=== PATIENT | female | born 1990 | race Caucasian/White ===

== ENCOUNTER 2022-03-12 17:09 | Emergency (ER) | payer OTHER, SELFPAY ==
[2022-03-12 17:20] VITALS: BP 137/95; PULSE 70; RESP 18; TEMP 36.9; O2SAT 97
--- NOTE | 2022-03-12 17:33 | ED.DENTAL ---
HPI - Dental/Oral General Chief complaint: Dental/Oral Stated complaint: Lt Mouth Pain Time Seen by Provider: 03/12/22 17:34 History of Present Illness HPI Narrative: Yajaira Sosa is a 31 yo female with no PMH who comes to [facility] with worsened some dental pain on left lower for the past couple weeks, DM and taking ibuprofen ibuprofen but is no longer working and she states her jaw hurts and she thinks her tooth is infected. She has no oral surgeon Related Data Home Medications Medication Instructions Recorded Confirmed melatonin 5 mg tablet 5 mg PO HS PRN Insomnia 03/12/22 03/12/22 Allergies Allergy/AdvReac Type Severity Reaction Status Date / Time Sulfa (Sulfonamide AdvReac Mild Hives Verified 03/12/22 17:24 Antibiotics) Review of Systems Review of Systems: CONSTITUTIONAL: Denies fever, chills, sweats. EYES: Denies visual changes, redness, discharge. ENT: Denies rhinorrhea, congestion, sore throat, otalgia. Left rear lower dental pain CARDIOVASCULAR: Denies chest pain, palpitations, edema. RESPIRATORY: Denies dyspnea, wheezing, cough GASTROINTESTINAL: Denies abdominal pain, nausea, vomiting, diarrhea. GENITOURINARY: Denies dysuria, hematuria, abnormal discharge SKIN: Denies rash or itching. NEUROLOGIC: Denies numbness, or focal weakness. PSYCHIATRIC: Denies anxiety or depression. [facility] Social History Social History (Updated 03/12/22 @ 17:40 by Bernarda Cardenas CNP) Smoking packs per day: 0.5 Smoking cigarettes per day: 10.0 Smoking status: Current every day smoker Tobacco type: cigarettes Alcohol intake: current Comments At time of signature, I agree with nursing past medical, surgical, social and family history. There is no relevant family history pertinent to the presenting complaint. Exam Narrative: GENERAL: This is a well-nourished, well-developed patient, in mild distress. HEAD: normocephalic, atraumatic. EYES: Sclera clear/white. Vision is grossly intact. EARS: External ears normal,. Hearing grossly intact. NOSE: External nose normal without nasal discharge, nares without redness, no rhinorrhea. THROAT: Mucous membranes moist, posterior pharynx pink with left-sided lower swelling, posterior molar #17 NECK: Neck supple, L tender, mild swelling CARDIOVASCULAR: Regular rate and rhythm without murmurs, gallops, or rubs. RESPIRATORY: Clear to auscultation. Breath sounds equal bilaterally. No wheezes, rales, or rhonchi. GASTROINTESTINAL: Not done SKIN: warm, intact with no suspicious lesions or rash, good texture and turgor. NEURO: awake, alert, and oriented to person, place and time. There were no obvious focal neurologic abnormalities. Steady gait EXTREMITIES: Normal range of motion. BACK: Nontender without deformity Course Course Emergency Course: Patient comes here with left lower posterior jaw pain and swelling times a couple of weeks she has been trying to find an oral surgeon to pull her left lower molar, has not found any by [facility] dental school she states is not taking patient Started on amoxicillin 875 twice daily prednisone taper pack, Naprosyn 500 mg 1 twice daily, Tylenol 3 Recommended [facility] dental school as well as AT [facility] dental school over in [facility] Level of Care: Express Care Visit Vital Signs Vital signs: Vital Signs Temperature 98.4 F 03/12/22 17:20 Pulse Rate 70 03/12/22 17:20 Respiratory Rate 18 03/12/22 17:20 Blood Pressure 137/95 H 03/12/22 17:20 Pulse Oximetry 97 03/12/22 17:20 Oxygen Delivery Room Air 03/12/22 17:20 Temperature 98.4 F 03/12/22 17:20 Pulse Rate 70 03/12/22 17:20 Respiratory Rate 18 03/12/22 17:20 Blood Pressure 137/95 H 03/12/22 17:20 Pulse Oximetry 97 03/12/22 17:20 Oxygen Delivery Room Air 03/12/22 17:20 MDM - Dental/Oral Differential Diagnosis Differential diagnosis: Likely gingival abscess, dental caries, toothache, dental abscess, fracture of tooth and other Critical Care
== END 2022-03-12 17:50 | disposition home or self-care (01) ==
PROVIDERS: Emergency Provider Nurse Practitioner
DX: K04.7 Periapical abscess without sinus (principal); F17.210 Nicotine dependence, cigarettes, uncomplicated
CPT/HCPCS: 99213; G0463

== ENCOUNTER 2023-09-19 00:48 | Emergency (ER) | payer SELFPAY ==
[2023-09-19 00:53] VITALS: BP 144/108; PULSE 108; RESP 18; TEMP 36.3; O2SAT 98
--- NOTE | 2023-09-19 06:03 | PC.NURSE ---
Called out x2, no response, patient not in waiting room.
== END 2023-09-19 06:03 | disposition left against medical advice (07) ==
LOC: ANHED 06:08
DX: R06.02 Shortness of breath (principal)
CPT/HCPCS: 99199

== ENCOUNTER 2024-11-08 14:13 | Emergency (ER) | payer BC, SELFPAY ==
--- NOTE | ~2024-11-08 | XR_ITS ---
EXAMINATION: XR ankle LT min 3V DATE: 11/08/2024 14:38 INDICATION: Left ankle pain post injury 2 days prior TECHNIQUE: Anteroposterior, oblique, mortise, and lateral views of the left ankle were obtained. COMPARISON: None. FINDINGS: Alignment is normal with congruent ankle mortise. No acute fracture. Small corticated ossicle near th e lateral process of the talus without evident donor site which likely represents heterotopic ossific ation related to chronic sprain of the anterior talofibular ligament. Additional heterotopic ossicle along the anterior margin of the distal fibula at the level of the tibial plafond which could represe nt additional heterotopic ossicles with location suggesting sequela of chronic sprain of the anterior -inferior tibiofibular ligament. Joint spaces are normal. No evident ankle joint effusion. Soft tissu e swelling most prominent about the lateral malleolus suggesting recurrent lateral ankle sprain. IMPRESSION: 1. Constellation of findings suggesting acute on chronic lateral ankle sprain. No acute osseous abnor mality. Reviewed, dictated and finalized at location A. IMPRESSION: 1. Constellation of findings suggesting acute on chronic lateral ankle sprain. No acute osseous abnormality.
[2024-11-08 14:24] VITALS: BP 129/88; PULSE 75; RESP 16; TEMP 36.4; O2SAT 98
--- NOTE | 2024-11-08 14:47 | ED.LOWEXIN ---
HPI - Extremity Injury (Lower) General Chief Complaint: Extremity Problem,Nontraumatic Stated Complaint: LT ankle injury Time Seen by Provider: 11/08/24 14:47 Source: patient, RN notes reviewed and old records reviewed Mode of arrival: ambulatory Limitations: no limitations History of Present Illness HPI Narrative: 34-year-old female presents to the [facility] with left ankle sprain, swelling, bruising. States that she was running and rolled her ankle Thursday, 2 days ago. Related Data Home Medications ?Medication ?Instructions ?Recorded ?Confirmed ?Last Taken ?Type melatonin 5 mg tablet 5 mg PO HS PRN Insomnia 03/12/22 03/12/22 Unknown History levonorgestrel 14 mcg/24 hr (up to 1 device intrauterine ONCE 11/08/24 11/08/24 Unknown History 3 yrs) 13.5 mg intrauterine device (Hope) Allergies Allergy/AdvReac Type Severity Reaction Status Date / Time nitrofurantoin (From Allergy Mild Hypotension Verified 11/08/24 14:27 Macrobid) Sulfa (Sulfonamide Allergy Mild Hives Verified 11/08/24 14:27 Antibiotics) Review of Systems Review of Systems: All systems reviewed & are unremarkable except as noted in HPI and below Constitutional: Constitutional: Reports no additional constitutional complaints ENT: Reports system reviewed and no additional complaints, except as documented Cardiovascular: Cardiovascular: Reports no additional cardiovascular complaints, Denies chest pain and Denies dyspnea Respiratory: Respiratory: Reports no additional respiratory complaints, Denies chest congestion, Denies cough and Denies dyspnea Musculoskeletal: Musculoskeletal: Reports as per HPI Integumentary/Breasts: Skin/Breast: Reports as per HPI PMFSH Social History Social History Smoking packs per day: 0.5 Smoking cigarettes per day: 10.0 Smoking status: Current every day smoker Tobacco type: cigarettes Alcohol intake: current Comments At the time of my signature, I reviewed and agree with the nursing past medical, surgical, social, and family history. There is no relevant family history pertinent to the patient complaint. Exam Const: General: cooperative, healthy appearing, comfortable, no acute distress, well developed, alert and well nourished Nutritional Appearance: well nourished Orientation/consciousness: patient oriented x3 Limitations: no limitations HENMT: Head: normal to inspection Eyes: General: appearance normal, both eyes and all related structures Alignment and Position: alignment normal Neck: Neck: normal visual inspection, full ROM, no lymphadenopathy and no meningeal signs Chest: Chest palpation & inspection: normal inspection of the chest Resp: Effort & Inspection: normal respiratory effort and able to speak in complete sentences Cardio: Rate: regular rate Skin: General skin exam: normal color and no rashes or lesions noted Neuro: General: patient oriented x3, moves all extremities and no meningeal signs Cognition (Neuro): normal cognition Speech: normal speech Gait exam (Neuro): Normal gait present Extrem: General: normal to inspection, full ROM, capillary refill normal and Limp noted Left lower extremity: full ROM and ankle Details: tenderness (General), swelling (Generalized), normal ROM and ecchymosis; no warmth, no abrasions and no lacerations Psych: Appearance: grossly normal and well kempt Mental Status: mental status grossly normal Speech and movement: Normal speech and movement present and Clear speech present Affect: normal affect Attitude: cooperative Course Course Level of Care: Express Care Visit Vital Signs Vital signs: Vital Signs Temperature 97.6 F 11/08/24 14:24 Pulse Rate 75 11/08/24 14:24 Respiratory Rate 16 11/08/24 14:24 Blood Pressure 129/88 11/08/24 14:24 Pulse Oximetry 98 11/08/24 14:24 Oxygen Delivery Room Air 11/08/24 14:24 Temperature 97.6 F 11/08/24 14:24 Pulse Rate 75 11/08/24 14:24 Respiratory Rate 16 11/08/24 14:24 Blood Pressure 129/88 11/08/24 14:24 Pulse Oximetry 98 11/08/24 14:24 Oxygen Delivery Room Air 11/08/24 14:24 Reviewed MDM - Extremity Injury (Lower) MDM Narrative Medical decision making narrative: Patient sitting in exam room. Nontoxic, vitals stable. Patient in no acute distress. Patient presents with ankle discomfort, swelling and bruising. Ankle x-ray is negative for acute fracture. Patient appropriate for outpatient treatment and follow-up Discharge instructions reviewed with patient, as well as provided in writing per nursing staff. The instructions also include specific and strict return/GO TO THE ER as well as f/u information. All questions have been answered, and the patient deny any further questions with discharge and discharge plan. Some parts of this dictation were generated by voice recognition software and may contain typographical and/or grammatical inaccuracies. Differential Diagnosis Differential diagnosis: Likely ankle sprain and strain and ankle fracture Imaging Data Radiologist's impression: EXAMINATION: XR ankle LT min 3V DATE: 11/08/2024 14:38 INDICATION: Left ankle pain post injury 2 days prior TECHNIQUE: Anteroposterior, oblique, mortise, and lateral views of the left ankle were obtained. COMPARISON: None. FINDINGS: Alignment is normal with congruent ankle mortise. No acute fracture. 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 Additional heterotopic ossicle along the anterior margin of the distal fibula at the level of the tibial plafond which could represent additional heterotopic ossicles with location suggesting sequela of chronic sprain of the anterior-inferior tibiofibular ligament. Joint spaces are normal. No evident ankle joint effusion. Soft tissue swelling most prominent about the lateral malleolus suggesting recurrent lateral ankle sprain. IMPRESSION: 1. Constellation of findings suggesting acute on chronic lateral ankle sprain. No acute osseous abnormality. Critical Care Time Critical Care Time Critical Care Time: No Discharge Plan Discharge Clinical Impression: Left ankle sprain Qualifiers: Encounter type: initial encounter Involved ligament of ankle: unspecified ligament Qualified Code(s): S93.402A - Sprain of unspecified ligament of left ankle, initial encounter Patient Disposition: Home, Self-Care Condition: Stable Instructions: Antibiotic Form, Ankle Sprain (ED) Additional Instructions: Your Xray did not show a fracture. Wear good supportive shoes at all times. Ice should be applied to help reduce swelling. It can be used for 20 to 30 minutes, every 2-3 hours while awake. Do not apply ice directly to your skin. ankle braces or tc-wraps will help support your injured ankle. You can alternate ibuprofen 600mg and Tylenol 650mg every 4 hours as needed for pain Please schedule a follow-up visit with your personal physician for further evaluation and treatment within 2 weeks especially if symptoms persist. For new or worsening symptoms go directly to the emergency room Patient Language: Albanian Prescriptions: No Action melatonin 5 mg Tablet 5 mg PO HS PRN (Reason: Insomnia) naproxen [Naprosyn] 500 mg tablet 500 mg PO BID Qty: 20 0RF Hope 14 mcg/24 hr (3 yrs) 13.5 mg intrauterine device 1 device intrauterine ONCE Rx Instructions: as a single dose Follow-up/Referrals: UNKNOWN,DOCTOR [Non-Staff] - Stand Alone Forms: Work/School Release IP Time of Disposition: 14:54
--- OUTSIDE RECORDS SUMMARY | 2024-11-08 15:39 | XMS_ITS | Encounter Summary ---
Author Organization [facility] Address [address] [place] [address] Care Team Providers Care Vulnerability Assessment Analyst Name Role Phone Unavailable Primary Care Provider Unavailabl e Encounter Details Date Type Department Care Team (Late st Contact Info) Description 05/14/2004 Outpatient Historical [facility] Family Medicine [place] [address] [facility] [place] [address] Syed Spencer, DO [address] [address] Social History Tobacco Use Types Packs/Day Years Used Date Smoking Tobacco: Never Assessed Comments Unknown Sex and Gender Information Value Date Recorded Sex Assigned at Not on file 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
--- OUTSIDE RECORDS SUMMARY | 2024-11-08 15:39 | XMS_ITS | Clinical Summary ---
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
--- OUTSIDE RECORDS SUMMARY | 2024-11-08 15:39 | XMS_ITS | Clinical Summary ---
Author Organization [facility] Address [address] [place] [address] Care Team Providers Care Caddy Name Role Phone Jaycob Casarez MD Primary Care Provider [phone] Source Comments [facility],non-owned Affiliates and Associated Physician Practices is amultiple site organization consisting of ambulatory clinics and hospital sitesin [place], [place], [place] and [place]. This disclosure is being madepursuant to the Care Everywhere program and may not contain all information available regarding this patient. Last updated 18.[facility] [employer] Allergies Active Allergy Reactions Criticality Noted Date Comments Sulfa Drugs Urticaria 11/07/2012 Medications * Be aware that medications may not be up to date on this document. Alwaysverify current medications with the patient. Medication Sig Dispensed Refills Start Date End Date Status albuterol HFA (PROVENTIL;VENTOLIN; PROAIR) 108 (90 BASE) MCG/ACT inhaler Inhale 1-2 Puffs by mouth every 4 hours as needed for Shortness of Breath, Wheezing or Cough. 2 Inhaler 2 11/10/2012 Active dextromethorphan-gua ifenesin ER 12hr (MUCINEX DM) 30-600 MG tablet Take 1 Tab by mouth once daily as needed for Cough. 60 Tab 1 11/10/2012 Active montelukast (SINGULAIR) 10 MG tablet Take 1 tablet by mouth at bedtime 30 tablet 1 10/18/2019 Active loratadine (CLARITIN) 10 MG tablet Take 1 tablet by mouth once daily 30 tablet 1 10/19/2019 Active albuterol (PROVENTIL;VENTOLIN) (2.5 MG/3ML) 0.083% nebulizer solution Inhale 2.5 mg by mouth every 6 hours as needed for Shortness of Breath or Wheezing 120 vial 5 10/18/2019 Active budesonide-formotero l (SYMBICORT) 160-4.5 MCG/ACT inhaler Inhale 2 puffs by mouth 2 times daily 1 Inhaler 2 10/20/2019 Active Active Problems Problem Noted Date Diagnosed Date Chest pain on breathing 10/16/2019 Hemoptysis 10/16/2019 Class 1 obesity in adult 10/16/2019 Acute respiratory failure with hypoxia 0 GERD (gastroesophageal reflux disease) 8 Bipolar disease in 11/09/2012 Overview (11/10/2012): Psychiatric consult appreciated. Patient started on lurasidone 40mg QDay. Social sevices consult to help arrange outpatient counseling. Liver lesion 11/09/2012 Overview (11/09/2012): Liver density on CT from OSH (possible hemangioma). RUQ US: hyperechoic focus in the periphery of the left hepatic lobe, measuring 2.1 cm in diameter. This is nonspecific but could be a hemangioma. Patient notified of findings, can f/u with PCP after delivery. Cough 11/04/2012 Overview (11/10/2012): Differential diagnosis at admission was broad, but at this time it appears that uncontrolled asthma is the main diagnosis. Hypoxemia improving, no longer requiring O2. Will ambulate this AM and if tolerates can consider discharge home. Elevated IgE, Rapid flu neg, alpha-1 antitrypsin wnl and pertussis, HIV neg. Viral respiratory panel neg, CMV neg, PPD negative. CXR clear. CT showed no acute findings- only minimal subsegmental atelectasis along the left hemidiaphragm. Prior CT angion negative for PE. Echo wnl. PFT unremarkable other than mild obstruction with reversibility. Blood and urine cultures pending- prelims neg. Appreciate infectious disease and pulmonary consult. Asthma 11/04/2012 Overview (11/10/2012): On albuterol/atrovent nebs will spaced to Q8 hrs yesterday, patient seems to tolerate. Qvar BID, albuterol inhaler PRN. Resp therapy observed inhaler technique with patient yesterday. Continue prednisone taper. Pepcid for possible GERD component. Home health consulted to help obtain mask for patient's home neb machine. Supervision of high-risk 11/04/2012 Overview (11/09/2012): A+/Immune/neg/neg HIV NR GCT ND, accuchecks wnl thus far. GBS neg Urine cx neg Encounter for health-related screening 2 Overview (11/07/2017): 1st look on 07/26/12 Results: 1:5000 for DS and 1:19437 for Trisomy 18 2nd blood draw ideal dates: 08/19/11-09/02/11 Letter sent 07/31/12 Final result: IMO update 11 08 2017 Resolved Problems Problem Noted Date Diagnosed Date Resolved Date Severe persistent asthma wit h acute exacerbation 10/16/2019 10/30/2019 Pneumonia 10/13/2019 11/13/2019 Family History Medical History Relation Name Comments Hypertension Father Diabetes Maternal Grandfather Heart Disease Maternal Grandfather Stroke Maternal Grandfather Arthritis Maternal Grandmother Diabetes Maternal Grandmother Heart Disease Maternal Grandmother Relation Name Status Comments Father Maternal Grandfather Maternal Grandmother Social History Tobacco Use Types Packs/Day Years Used Date Smoking Tobacco: Former Cigarettes 0.3 10 Smokeless Tobacco: Former Quit: 05/27/2012 Tobacco Cessation:Counseling Given: Yes Alcohol Use Standard Drinks/Week Comments No 0 (1 standard drink = 0.6 oz pur e alcohol) Sex and Gender Information Value Date Recorded Sex Assigned at Not on file Gender Identity Not on file Sexual Orientation Not on file Last Filed Vital Signs Vital Sign Reading Time Taken Comments Blood Pressure 131/63 10/18/2019 12:00 PM CDT Pulse 105 10/18/2019 3:01 PM CDT Temperature 36.6 C (97.9 F) 10/18/2019 12:00 PM CDT Respiratory Rate 20 10/18/2019 1:2 6 PM CDT Oxygen Saturation 95% 10/18/2019 3:01 PM CDT Inhaled Oxygen Concentration - - Weight 117.8 kg (259 lb 9.6 oz) 10/18/2019 5:22 AM CDT Height 152.4 cm (5') 10/16/2019 5:08 PM CDT Body Mass Index 50.7 10/16/2019 5:08 PM CDT Plan of Treatment Health Maintenance Due Date Last Done Comments PAP SMEAR 1988 HEPATITIS C SCREENING 10/20/2006 DTAP/TDAP/TD VACCINES (1 - Tdap) 10/25/2007 HEPATITIS B VACCINE (1 of 3 - 19+ 3-dose series) 10/25/2007 PNEUMOCOCCAL VACCINE (1 of 2 - PCV) 10/25/2007 COVID-19 VACCINE (1 - 2023-2 5 season) 2024 INFLUENZA VACCINE (#1) 2024 08/26/2013 ZOSTER VACCINE (1 of 2) 2038 HIV SCREENING Completed 11/04/2012 HIB VACCINE Aged Out No longer eligi ble based on patient's age to complete this topic HPV VACCINE Aged Out No longer eligi ble based on patient's age to complete this topic MENINGOCOCCAL (Group B) VACC INE SHARED DECISION-MAKING Aged Out No longer eligibl e based on patient's age to complete this topic MENINGOCOCCAL GROUPS A/C/Y/W VACCINE Aged Out No longer eligible b ased on patient's age to complete this topic Procedures Procedure Name Priority Date/Time Associated Diagnosis Comments HIV-1 HIV-2 ANTIBODY Routine 11/04/2012 11:51 PM CDT from Last 3 Months or Most Recently Relevant to Health Maintenance Results * HIV-1 HIV-2 ANTIBODY (11/04/2012 11:51 PM CDT) HIV-1/HIV-2 Non Reactive Non Reactive 3 8:22 AM CDT [facility] Blood specimen (specimen) BLOOD SPECIMEN / Unknown 11/04/2012 11:51 PM CDT 11/05/2012 12:14 AM CDT Sanjuanita Weinberg MD LAB - CHEMISTRY ORD ERABLES [facility] [address] [place] [address] from Last 3 Months or Most Recently Relevant to Health Maintenance Advance Directives * Full Code (Latest Code Status on File) Date Activated Date Inactivated Comments 10/16/2019 5:12 PM 10/18/2019 6:54 PM * Full Code Date Activated Date Inactivated Comments 10/16/2019 5:12 PM 10/16/2019 5:12 PM * FULL RESUSCITATION Date Activated Date Inactivated Comments 11/04/2012 10:18 PM 11/10/2012 5:09 PM Care Teams Caddy Relationship Specialty Start Date End Date Jaycob Casarez MD PCP - General Internal Medicine 10/16/19
--- OUTSIDE RECORDS SUMMARY | 2024-11-08 15:39 | XMS_ITS | Encounter Summary ---
Author Organization [facility] Address [address] [place] [address] Care Team Providers Care Concrete Worker Name Role Phone Unavailable Primary Care Provider Unavailabl e Encounter Details Date Type Department Care Team (Late st Contact Info) Description 04/28/2003 Outpatient Historical [facility] Family Medicine [place] [address] [facility] [place] [address] Syed Spencer, DO [address] [address] Social History Tobacco Use Types Packs/Day Years Used Date Smoking Tobacco: Never Assessed Comments Unknown Sex and Gender Information Value Date Recorded Sex Assigned at Not on file 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
--- OUTSIDE RECORDS SUMMARY | 2024-11-08 15:41 | XMS_ITS | Encounter Summary ---
Author Organization [facility] Address [address] [place] [address] Care Team Providers Care Vacuum Cleaner Operator Name Role Phone None, Provider Primary Care Provider Luis ble Encounter Details Date Type Department Care Team (Latest Contact Info) Description 11/07/2024 Travel Social History Tobacco Use Types Packs/Day Years Used Date Smoking Tobacco: Every Day Cigarettes 0.3 16.2 Started: 08/10/2008 Smokeless Tobacco: Never Alcohol Use Standard Drinks/Week Comments Yes 1 (1 standard drink = 0.6 oz pur e alcohol) 1-2 drinks per month [facility] Utilities Answer Date Recorded In the past 12 months has e electric, gas, oil, or water company threatened to shut off services in your home? No 09/07/2023 Humiliation, Afraid, Rape, and Kick questionnair e Answer Date Recorded Within the last year, have y ou been afraid of your partner or ex-partner? No 09/07/2023 Within the last year, have y ou been humiliated or emotionally abused in other ways by your partner or ex-partner? No Within the last year, have y ou been kicked, hit, slapped, or otherwise physically hurt by your partner or ex-partner? No 09/07/2023 Within the last year, have y ou been raped or forced to have any kind of sexual activity by your partner or ex-partner? No 09/07/2023 Social Connection and Isolat ion Panel [NHANES] Answer Date Recorded In a typical week, how many times do you talk on the phone with family, friends, or neighbors? More than three times a week 09/07/2023 How often do you get togethe r with friends or relatives? More than three times a week 09/07/2023 How often do you attend chur ch or islam services? Never 09/07/2023 Do you belong to any clubs o r organizations such as judaism groups, unions, fraternal or athletic groups, or school groups? No 09/07/2023 How often do you attend meet ings of the clubs or organizations you belong to? Never 09/07/2023 Are you , , di vorced, , never , or living with a partner? Never 09/07/2023 AUDIT-C Answer Date Recorded Q1: How often do you have a drink containing alc ohol? Monthly or less 09/07/2023 Q2: How many drinks containi ng alcohol do you have on a typical day when you are drinking? 1 or 2 09/07/2023 Q3: How often do you have si x or more drinks on one occasion? Never 09/07/2023 Overall Financial Resource Strain (CARDIA) Answe r Date Recorded How hard is it for you to pa y for the very basics like food, housing, medical care, and heating? Somewhat hard 09/07/2023 PHQ-2 Answer Date Recorded Patient Health Questionnaire-2 Score 0 09/07/2023 [facility] - Occupational Stress Questionnaire Answer Date Recorded Do you feel stress - tense, restless, nervous, or anxious, or unable to sleep at night because your mind is troubled all the time - these days? Rather much 09/07/2023 Exercise Vital Sign Answer Date Recorde d On average, how many days pe r week do you engage in moderate to strenuous exercise (like a brisk walk)? 0 days 09/07/2023 On average, how many minutes do you engage in exercise at this level? 0 min 09/07/2023 Hunger Vital Sign Answer Date Recorded Within the past 12 months, y ou worried that your food would run out before you got the money to buy more. Never true 09/07/19 24 Within the past 12 months, t he food you bought just didn't last and you didn't have money to get more. Never true 09/07/2023 PRAPARE - Transportation Answer Date Re corded In the past 12 months, has l ack of transportation kept you from medical appointments or from getting medications? No 08/11 In the past 12 months, has l ack of transportation kept you from meetings, work, or from getting things needed for daily living? No 09/07/2023 Housing Stability Vital Sign Answer Tj e Recorded In the last 12 months, was t here a time when you were not able to pay the mortgage or rent on time? No 09/07/2023 In the last 12 months, how many places have you lived? 1 09/07/2023 In the last 12 months, was t here a time when you did not have a steady place to sleep or slept in a prison (including now)? No 09/07/2023 Comments No Sex and Gender Information Value Date Recorded Sex Assigned at Female 09/07/2023 2:05 PM TUBE AND MANIFOLD BUILDER Legal Sex Female 8:35 PM CDT Gender Identity Female 09/07/2023 2:05 PM TUBE AND MANIFOLD BUILDER Sexual Orientation Straight 09/07/2023 2: 05 PM TUBE AND MANIFOLD BUILDER documented as of this encounter Functional Status * Are you deaf or do you have serious difficulty hearing Answer Date of Assessment Author Status No 09/07/2023 2:10 PM TUBE AND MANIFOLD BUILDER Karyn Sosa RN Active * Are you blind or do you have serious difficulty seeing, even when wearing glasses? Answer Date of Assessment Author Status No 09/07/2023 2:10 PM TUBE AND MANIFOLD BUILDER Karyn Sosa RN Active * Do you have serious difficulty walking or climbing stairs? Answer Date of Assessment Author Status No 09/07/2023 2:10 PM TUBE AND MANIFOLD BUILDER Karyn Sosa RN Active * Do you have difficulty dressing or bathing? Answer Date of Assessment Author Status No 09/07/2023 2:10 PM Karyn Satnamaria RN Active * Because of a physical, mental, or emotional condition, do you have difficulty doing errands alone such as visiting a doctor's office or shopping? Answer Date of Assessment Author Status No 09/07/2023 2:10 PM Karyn Santamaria RN Active documented as of this encounter Mental Status * Because of a physical, mental, or emotional condition, do you have serious difficulty concentrating, remembering, or making decisions? Answer Entry Date Author Status No 09/07/2023 2:10 PM Karyn Santamaria RN Active documented in this encounter Plan of Treatment Not on file documented as of this encounter Goals Goal Patient Goal Type Associated Problems Recent Progress Patient-Stated? Author Return home to independent [facility] General No Eva Melchor, EQUINE MANAGER Note: Plan to return home with her daughter and boyfriend. No discharge needs identified. documented as of this encounter Visit Diagnoses Not on filedocumented in this encounter Care Teams Vacuum Cleaner Operator Relationship Specialty Start Date End Date None, Provider, PCP - General 03/08/21 documented as of this encounter
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
--- OUTSIDE RECORDS SUMMARY | 2024-11-08 15:41 | XMS_ITS | Encounter Summary ---
Author Organization [facility] Address [facility] [place] [address] Care Team Providers Care Rabbet Operator Name Role Phone Jaycob Casarez MD Primary Care Provider [phone] None, Provider Primary Care Provider Unavaila ble Encounter Details Date Type Department Care Team (Late st Contact Info) Description 12/10/2012 Abstract [facility] [address] [place] [address] , Generic Conversion, Social History Tobacco Use Types Packs/Day Years Used Date Smoking Tobacco: Never Assessed Comments Unknown Sex and Gender Information Value Date Recorded Sex Assigned at Female 09/07/2023 2:05 PM HOME IMPROVEMENT CONTRACTOR Legal Sex Female 8:35 PM CDT Gender Identity Female 09/07/2023 2:05 PM HOME IMPROVEMENT CONTRACTOR Sexual Orientation Straight 09/07/2023 2: 05 PM HOME IMPROVEMENT CONTRACTOR documented as of this encounter Plan of Treatment Not on file documented as of this encounter Visit Diagnoses Not on filedocumented in this encounter Additional Health Concerns Infection Onset Date Last Indicated Resolved Time COVID-19 Rule Out 04/28/2021 04/28/2021 04/28/2021 3:36 PM CDT COVID-19 Rule Out 04/28/2021 04/28/2021 04/30/2021 12:12 AM CDT COVID-19 Rule Out 09/07/2023 09/07/2023 09/07/2023 7:06 AM HOME IMPROVEMENT CONTRACTOR COVID-19 Rule Out 10/27/2023 10/27/2023 10/27/2023 10:28 AM CDT documented as of this encounter Care Teams Rabbet Operator Relationship Specialty Start Date End Date Jaycob Casarez MD PCP - General INTERNAL MEDICINE 11/16/18 03/07/21 None, Provider, PCP - General 03/08/21 documented as of this encounter
== END 2024-11-08 14:58 | disposition home or self-care (01) ==
PROVIDERS: Emergency Provider Nurse Practitioner
DX: S93.402A Sprain of unspecified ligament of left ankle, initial encounter (principal); X50.9XXA Other and unspecified overexertion or strenuous movements or postures, initial encounter; Y93.02 Activity, running; F17.210 Nicotine dependence, cigarettes, uncomplicated
CPT/HCPCS: 73610; 99213; G0463